=== PATIENT | female | born 1955 | race American Indian/Alaskan Native ===

== ENCOUNTER 2018-01-07 04:40 | Emergency (ER) | payer BC ==
[2018-01-07] MEDS ORDERED: KEPPRA 500 MG/NS 0.82% 100 ML 500 MG/100 ML BAG IV ONE (05:50)
[2018-01-07 06:06] LABS: Hematocrit 39.9 % (30.3-42.9); Hemoglobin 13.1 gm/dl (10.1-14.3); Mean Corpuscular HGB Conc 33 % (30-34); Mean Corpuscular Hemoglobin 29 pg (28-32); Mean Corpuscular Volume 88 fl (79-97); Platelet Count 296 K/mm3 (140-440); Red Blood Count 4.56 M/mm3 (3.65-5.03); Red Cell Distribution Width 14.3 % (13.2-15.2)
[2018-01-07 06:18] LABS: BUN/Creatinine Ratio 23; Blood Urea Nitrogen 16 mg/dL (7-17); Calcium 9.1 mg/dL (8.4-10.2); Hemolysis Index 95
--- NOTE | 2018-01-07 06:43 | Emergency Department Report ---
ED General Adult HPI - General Chief complaint: Seizure Stated complaint: SEIZURE Time Seen by Provider: 01/07/18 06:19 Source: patient Mode of arrival: Stretcher Limitations: No Limitations - History of Present Illness Initial comments: 62-year-old seizure patient lost to follow-up just moved here [facility] where she was being treated at the [place] for chronic seizures hasn' t yet made an appointment at the [facility]. Says she's been taking her Keppra but had 2 witnessed seizures this morning. No trauma awake and alert now for evaluation of 2 witnessed seizures. She says she is compliant with her medicines. She was loaded with Keppra on the night nurse. Denies trauma no other complaints awake and alert and oriented 3 nonfocal neuro exam -: Gradual, This evening Severity scale (0 -10): 0 Improves with: none Associated Symptoms: denies other symptoms, seizure, other (states tongue trauma but no other complaints. No stridor or drooling swallowing okay, question of noncompliance Keppra). denies: confusion, chest pain, cough, diaphoresis, fever/chills, headaches, loss of appetite, malaise, nausea/vomiting , rash, shortness of breath, syncope, weakness - Related Data Previous Rx's Medication Instructions Recorded Last Taken Type levETIRAcetam [Keppra XR TAB] 500 mg PO QDAY #14 tab.er.24h 01/07/18 Unknown Rx Allergies Allergy/AdvReac Type Severity Reaction Status Date / Time No Known Allergies Allergy Verified 01/07/18 05:07 ED Review of Systems ROS: Stated complaint: SEIZURE Other details as noted in HPI Comment: All other systems reviewed and negative Constitutional: denies: diaphoresis, fever, malaise ENT: denies: dental pain, hearing loss, epistaxis Respiratory: denies: shortness of breath, SOB with exertion, SOB at rest, stridor Cardiovascular: denies: chest pain, palpitations, dyspnea on exertion, orthopnea , edema, syncope Gastrointestinal: denies: abdominal pain, nausea, vomiting, diarrhea, constipation, hematemesis, melena, hematochezia Neurological: denies: headache, weakness, numbness, paresthesias, confusion, abnormal gait, vertigo ED Past Medical Hx - Past Medical History Previous Medical History?: Yes Hx Hypertension: Yes Hx Diabetes: Yes Hx Seizures: Yes Additional medical history: Breast cancer - lymphnode removed from left side - Surgical History Past Surgical History?: Yes Additional Surgical History: Breast CA lymphnode removal - Social History Smoking Status: Never Smoker Substance Use Type: None - Medications Home Medications: Home Medications Medication Instructions Recorded Confirmed Last Taken Type levETIRAcetam [Keppra XR TAB] 500 mg PO QDAY #14 tab.er.24h 01/07/18 Unknown Rx ED Physical Exam - General Limitations: No Limitations General appearance: alert, in no apparent distress, anxious - Head Head exam: Present: atraumatic, normocephalic - Eye Eye exam: Present: PERRL, EOMI - ENT ENT exam: Present: normal exam - Neck Neck exam: Present: normal inspection. Absent: tenderness, meningismus - Respiratory Respiratory exam: Present: normal lung sounds bilaterally. Absent: respiratory distress, wheezes, rales, rhonchi, stridor, chest wall tenderness, accessory muscle use, decreased breath sounds, prolonged expiratory - Cardiovascular Cardiovascular Exam: Present: regular rate, normal rhythm. Absent: tachycardia , irregular rhythm, normal heart sounds, systolic murmur, diastolic murmur, rubs , gallop - GI/Abdominal GI/Abdominal exam: Present: soft. Absent: tenderness, guarding, rebound, rigid , normal bowel sounds, mass, pulsatile mass - Extremities Exam Extremities exam: Present: normal inspection. Absent: tenderness, normal capillary refill, pedal edema, joint swelling, calf tenderness - Back Exam Back exam: Present: normal inspection. Absent: tenderness, CVA tenderness (R), CVA tenderness (L), muscle spasm, paraspinal tenderness - Neurological Exam Neurological exam: Present: alert, CN II-XII intact. Absent: oriented X3, motor sensory deficit - Psychiatric Psychiatric exam: Present: normal affect - Skin Skin exam: Present: warm. Absent: diaphoretic, erythema, urticaria, vesicles, petechiae, pallor, abrasion, ecchymosis ED Course Vital Signs 01/07/18 01/07/18 01/07/18 04:56 05:00 05:07 Temperature 99.3 F Pulse Rate 91 H 90 Respiratory 25 H 14 Rate Blood Pressure 195/83 O2 Sat by Pulse 96 94 96 Oximetry 01/07/18 01/07/18 01/07/18 05:15 05:19 05:31 Temperature Pulse Rate 95 H 94 H Respiratory 18 19 Rate Blood Pressure 195/83 195/83 O2 Sat by Pulse 96 96 Oximetry 01/07/18 01/07/18 01/07/18 05:45 06:00 06:15 Temperature Pulse Rate 91 H 84 87 Respiratory 25 H 24 14 Rate Blood Pressure 195/83 181/86 195/104 O2 Sat by Pulse 93 96 93 Oximetry 01/07/18 06:30 Temperature Pulse Rate 90 Respiratory 22 Rate Blood Pressure 191/99 O2 Sat by Pulse 92 Oximetry ED Medical Decision Making - Lab Data Result diagrams: 01/07/18 05:59 01/07/18 05:59 - Radiology Data Radiology results: report reviewed - Medical Decision Making No further seizures appreciated laboratories shows unremarkable CT unremarkable stable for outpatient follow-up patient does admit to noncompliance Critical care attestation.: If time is entered above; I have spent that time in minutes in the direct care of this critically ill patient, excluding procedure time. ED Disposition Clinical Impression: Seizure Disposition: DC-01 TO HOME OR SELFCARE Is pt being admited?: No Condition: Stable Instructions: Recurrent Seizures Adult (ED) Additional Instructions: See the doctor list to make an appointment with the [place] neurologist or a neurologist of your choice return immediately if new or alarming symptoms Prescriptions: levETIRAcetam [Keppra XR TAB] 500 mg PO QDAY #14 tab.er.24h Referrals: LISA COLEMAN MD [Primary Care Provider] - 3-5 Days Time of Disposition: 10:54
--- NOTE | 2018-01-07 07:09 | Cat Scan Report ---
FINAL REPORT EXAM: CT HEAD/BRAIN WO CON HISTORY: Seizure. TECHNIQUE: Unenhanced axial CT images of the brain were obtained. No prior studies are available for comparison. FINDINGS: There is mild generalized volume loss, appropriate for patient's age. The silva-white differentiation is maintained. There is no extra-axial fluid collection, mass, mass effect, midline shift, hydrocephalus, or acute intracranial hemorrhage. The visualized paranasal sinuses and right mastoid air cells are clear. There is minimal partial opacification of several posterior left mastoid air cells. Nonspecific soft tissue is seen in the left external auditory canal, statistically likely cerumen. There is no skull fracture or other osseous abnormality. The visualized orbits and globes are grossly unremarkable. IMPRESSION: No acute intracranial abnormality. Minimal opacification of several posterior left mastoid air cells, suggesting minimal mastoiditis.
[2018-01-07 12:11] VITALS: BP 191/75
== END 2018-01-07 12:21 | disposition home or self-care (01) ==
LOC: ED 04:40
DX: G40.909 Epilepsy, unspecified, not intractable, without status epilepticus (principal); I10 Essential (primary) hypertension; E11.9 Type 2 diabetes mellitus without complications
CPT/HCPCS: 36415; 70450; 80048; 80177; 85027; 96374; 99285; J1953